=== PATIENT | male | born 1975 | race Caucasian/White ===

== ENCOUNTER → 2020-11-02 | Day surgery (SDC) | payer OTHER ==
[~2020-11-02] VITALS: Ht 177.8 cm; Wt 91.6 kg
[~2020-11-02] MED LIST: HYDROCODON-ACE1 EAC2 PO; IBU800 MG PO; NEURONTIN800 MG PO
[2020-11-02 09:56] LABS: HEMOGLOBIN 15.4 gm/dl (14.0-17.5); RED BLOOD COUNT 5.05 M/UL (4.20-5.50); WHITE BLOOD COUNT 5.4 K/UL (4.5-11.0)
[2020-11-02 10:10] LABS: BUN/CREATININE RATIO 6 (0-10)
== END | disposition home or self-care (01) ==
LOC: OR 09:15
PROVIDERS: Orthopaedic Surgery
DX: S52.572A Other intraarticular fracture of lower end of left radius, initial encounter for closed fracture (principal); M19.90 Unspecified osteoarthritis, unspecified site; I10 Essential (primary) hypertension; J43.9 Emphysema, unspecified; E05.90 Thyrotoxicosis, unspecified without thyrotoxic crisis or storm; E04.1 Nontoxic single thyroid nodule; B19.10 Unspecified viral hepatitis B without hepatic coma; H53.8 Other visual disturbances; H91.90 Unspecified hearing loss, unspecified ear; F17.210 Nicotine dependence, cigarettes, uncomplicated; Z79.51 Long term (current) use of inhaled steroids; Z79.899 Other long term (current) drug therapy; W17.89XA Other fall from one level to another, initial encounter; Y93.9 Activity, unspecified; Y92.59 Other trade areas as the place of occurrence of the external cause
CPT/HCPCS: 36415; 73110; 76000; 80048; 85027; C1713; J0171; J0690; J1100; J2001; J2250; J2405; J2704; J2795; J7120